=== PATIENT | female | born 2005 | race Two or more races ===

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

== ENCOUNTER → 2025-03-24 | Outpatient (REF) | payer OTHER ==
[~2025-03-24] MED LIST changes: +COLA100C5 PO; +PERCOCET PO
== END ==
LOC: M LAB REF 17:04
PROVIDERS: ATTEND Physician Assistant Medical
DX: J02.9 Acute pharyngitis, unspecified (principal)

== ENCOUNTER → 2025-05-19 | Outpatient (REF) | payer OTHER | LOC: M LAB REF 14:35 | PROVIDERS: ATTEND Nurse Practitioner Family | DX: R30.0 Dysuria (principal) ==

== ENCOUNTER 2025-05-29 16:30 | Observation (INO) | payer OTHER ==
[~2025-05-29] VITALS: Ht 157.5 cm; Wt 55.7 kg
[2025-05-29 17:28] LABS: BASO # 0.0 10^3/uL (0.0-0.2); BASO % 0.4 % (0.0-1.0); EOS # 0.1 10^3/uL (0.0-0.5); EOS % 0.7 % (0.0-3.0); LYMPH # 2.6 10^3/uL (1.5-5.0); LYMPH % 26.8 % (24.0-44.0); MONO # 0.9 10^3/uL (0.0-0.8); MONO % 8.8 % (2.0-8.0); NEUTROPHILS # 6.2 10^3/uL (1.5-8.5); NEUTROPHILS % 63.1 % (36.0-66.0); PLATELET COUNT, AUTOMATED 177 10^3/uL (150-450)
[2025-05-29 17:46] LABS: HCG, SERUM QUALITATIVE NEGATIVE (NEGATIVE)
[2025-05-29 17:48] LABS: ALT/SGPT 26 U/L (7.0-40); AST/SGOT 19 U/L (<34); CALCIUM LEVEL 9.3 MG/DL (8.5-10.1); CARBON DIOXIDE LEVEL 26 MMOL/L (20-31); CHLORIDE LEVEL 106 MMOL/L (98-107); CREATININE FOR GFR 2.30 MG/DL (0.55-1.30); GLOMERULAR FILTRATION RATE 30.4 (>60); POTASSIUM SERUM 3.9 MMOL/L (3.5-5.1); SODIUM LEVEL 143 MMOL/L (136-145)
[2025-05-29] MEDS: ONDANSETRON 4MG/2ML VIAL IV ONE (18:17)
[2025-05-29] MEDS: MORPHINE 2 MG/ML 1 ML VIAL IV ONE (18:18)
[2025-05-29] MEDS ORDERED: HOME MED LIST COMPLETE! XX SCH (18:30)
[2025-05-29] MEDS: TAMSULOSIN 0.4 MG CAP PO ONE (18:39)
[2025-05-29] MEDS: NS (Normal Saline) 0.9% 1,000 ML IV ONE (18:41)
[2025-05-29 19:58] LABS: KETONE, URINE AUTO RFX NEGATIVE (NEGATIVE); MUCUS, URINE RFX SMALL (NEGATIVE); NITRITE, URINE AUTO RFX NEGATIVE (NEGATIVE); RBC, URINE AUTO RFX 4 /HPF (0-3); SQUAM EPITHELIAL CELL UR AURFX 1 /HPF (0-6)
[2025-05-29 20:28] LABS: LEUKOCYTE ESTERASE UR AUTO RFX 1+ (NEGATIVE); WBC, URINE AUTO RFX 14 /HPF (0-3)
[2025-05-29] MEDS ORDERED: MORPHINE 4 MG/ML 1 ML VIAL IV PRN ×2 (21:05)
[2025-05-29] MEDS: NS (Normal Saline) 0.9% 1,000 ML IV SCH (22:38)
[2025-05-29 22:50] VITALS: BP 112/65; TEMP 98.1; O2SAT 100
[2025-05-30] VITALS (7 sets, daily range): BP systolic 99–117; BP diastolic 52–63; TEMP 96.9–98.9; O2SAT 98–100
[2025-05-30] MEDS ORDERED: LIDOCAINE 2% 100 MG/5 ML SDV (FOR ANES.) As Ordered ONE (07:07)
[2025-05-30] MEDS ORDERED: dexAMETHasone 4 MG/ML 1 ML VIAL As Ordered ONE (07:07)
[2025-05-30] MEDS ORDERED: ONDANSETRON 4MG/2ML VIAL As Ordered ONE (07:07)
[2025-05-30] MEDS ORDERED: MIDAZOLAM INJ 2 MG/2 ML VIAL As Ordered ONE (07:08)
[2025-05-30] MEDS: ceFAZolin SODIUM 2 GM in DEXTROSE 5% (D5W) ADV/MINI-BAG 50 ML IV ONE (07:20)
[2025-05-30] MEDS ORDERED: ACETAMINOPHEN 1000MG/100ML IV BAG As Ordered ONE (07:48)
[2025-05-30] MEDS: LIDOCAINE 2% 5 ML JELLY UROJET As Ordered ONE (07:59)
[2025-05-30] MEDS: ISOVUE-300 61% 100 ML VIAL As Ordered ONE (08:05)
[2025-05-30] MEDS ORDERED: MORPHINE 4 MG/ML 1 ML VIAL IV PRN (08:20)
[2025-05-30] MEDS: LR 1,000 ML IV SCH (08:20)
[2025-05-30] MEDS ORDERED: PERCOCET 5MG/325MG TAB PO PRN ×2 (08:30)
[2025-05-30] MEDS: MORPHINE 4 MG/ML 1 ML VIAL IV PRN ×2 (08:34→10:40)
[2025-05-30] MEDS: ONDANSETRON 4MG/2ML VIAL IV PRN ×2 (08:39→10:57)
[2025-05-30] MEDS ORDERED: PERCOCET PO (08:45)
[2025-05-30 14:18] LABS: BASO # 0.0 10^3/uL (0.0-0.2); BASO % 0.1 % (0.0-1.0); EOS # 0.0 10^3/uL (0.0-0.5); EOS % 0.0 % (0.0-3.0); LYMPH # 0.6 10^3/uL (1.5-5.0); LYMPH % 7.0 % (24.0-44.0); MONO # 0.1 10^3/uL (0.0-0.8); MONO % 1.1 % (2.0-8.0); NEUTROPHILS # 8.1 10^3/uL (1.5-8.5); NEUTROPHILS % 91.5 % (36.0-66.0); PLATELET COUNT, AUTOMATED 170 10^3/uL (150-450)
[2025-05-30 14:56] LABS: ALT/SGPT 84.0 U/L (7.0-40); AST/SGOT 126.0 U/L (<34); CALCIUM LEVEL 8.5 MG/DL (8.5-10.1); CARBON DIOXIDE LEVEL 25.0 MMOL/L (20-31); CHLORIDE LEVEL 108.0 MMOL/L (98-107); CREATININE FOR GFR 1.0 MG/DL (0.55-1.30); GLOMERULAR FILTRATION RATE 82.7 (>60); POTASSIUM SERUM 3.9 MMOL/L (3.5-5.1); SODIUM LEVEL 141.0 MMOL/L (136-145)
[2025-05-30] MEDS ORDERED: PYRI1TAB5 PO (15:40)
== END 2025-05-30 16:55 | disposition home or self-care (01) ==
LOC: M ED 16:30 → M ED INP 16:31 → M PED 22:48
PROVIDERS: ADMIT Student in an Organized Health Care Education/Training Program; ATTEND Student in an Organized Health Care Education/Training Program
DX: N20.1 Calculus of ureter (principal); N13.8 Other obstructive and reflux uropathy; N17.9 Acute kidney failure, unspecified; R10.32 Left lower quadrant pain; R11.0 Nausea; Z90.5 Acquired absence of kidney; F17.290 Nicotine dependence, other tobacco product, uncomplicated; Z79.3 Long term (current) use of hormonal contraceptives
CPT/HCPCS: 36415; 51798; 52332; 52352; 74176; 74420; 80048; 80053; 80076; 81001; 82365; 83690; 84703; 85025; 87086; 96361; 96374; 96375; 96376; 99284; C1769; C2617; J0131; J0688; J1100; J2250; J2405; J2765; J3010; Q9967

== ENCOUNTER → 2025-06-12 | Outpatient (REF) | payer OTHER ==
[2025-06-12 15:24] LABS: APPEARANCE, URINE CLEAR (CLEAR); BACTERIA, URINE AUTO 1+ (NEGATIVE); BILIRUBIN, URINE AUTO NEGATIVE (NEGATIVE); BLOOD, URINE BLOOD 3+ (NEGATIVE); GLUCOSE, URINE (UA) AUTO NEGATIVE (NEGATIVE); KETONE, URINE AUTO NEGATIVE (NEGATIVE); LEUKOCYTE ESTERASE, URINE AUTO TRACE (NEGATIVE); NITRITE, URINE AUTO NEGATIVE (NEGATIVE); PROTEIN, URINE AUTO NEGATIVE (NEGATIVE); RBC, URINE AUTO 1 /HPF (0-3); SPECIFIC GRAVITY URINE AUTO 1.002 (1.002-1.035); SQUAMOUS EPITHELIAL CELL UR AU 3 /HPF (0-6); UROBILINOGEN, URINE AUTO 0.2 mg/dL (0.0-2.0); WBC, URINE AUTO 2 /HPF (0-3)
== END ==
LOC: M SMT 14:56
PROVIDERS: ATTEND Urology
DX: N39.0 Urinary tract infection, site not specified (principal)